=== PATIENT | male | born 1935 | race Caucasian/White ===

== ENCOUNTER 2022-09-28 12:23 | Emergency (ER) | payer MEDICARE, OTHER ==
[2022-09-28] MEDS: Sodium Chloride 0.9% 10 ML Syringe FLUSH PRN ×4 (12:52→14:52)
[2022-09-28 13:04] LABS: BASE EXCESS VENOUS,POC -3 mmol/L (-2 - 3+); PCO2 VENOUS,POC 54 mmHg (41-51); PH VENOUS,POC 7.26 pH Units (7.32-7.43)
[2022-09-28 13:12] LABS: ESTIMATED GFR 36 mL/min (>60)
[2022-09-28] MEDS ORDERED: Azithromycin 500 MG in Sodium Chloride 0.9% 250 ML IV STA (14:03)
[2022-09-28] MEDS ORDERED: cefTRIAXone 2 GM Vial IVPUSH STA (14:03)
[2022-09-28] MEDS ORDERED: Albuterol/Ipratropium 3.0-0.5 MG/3 ML Neb Soln NEB STA (14:31)
[2022-09-28] MEDS ORDERED: Furosemide 20 MG/2 ML VIAL IVPUSH SCH (14:45)
[2022-09-28] MEDS ORDERED: Aspirin 81 MG Tab.Chew PO STA (15:23)
== END 2022-09-28 16:25 ==
LOC: EDBD 12:23 → FB.ED 12:23 → MERGE 12:23 → FB.ED 16:25
DX: J18.9 Pneumonia, unspecified organism (principal); I11.0 Hypertensive heart disease with heart failure; I50.1 Left ventricular failure, unspecified; D64.9 Anemia, unspecified; E78.5 Hyperlipidemia, unspecified; N40.0 Benign prostatic hyperplasia without lower urinary tract symptoms; I44.7 Left bundle-branch block, unspecified; Z87.891 Personal history of nicotine dependence; Z88.5 Allergy status to narcotic agent; Z20.822 Contact with and (suspected) exposure to COVID-19
CPT/HCPCS: 36415; 71045; 80053; 83605; 83880; 84484; 85025; 85379; 85610; 85730; 86140; 87040; 93005; 94640; 96365; 96375; 99285-25; A9270-GY; J0456; J0696; J1940; J3490; J7050; J7620; U0002

== ENCOUNTER 2022-10-05 10:21 | Inpatient (IN) | payer MEDICARE, OTHER ==
[2022-10-05] MEDS: Carvedilol 25 MG Tab PO SCH (18:29)
[2022-10-05] MEDS: Triamcinolone Acetonide 0.1% Crm 15 GM Tube TOP SCH (20:10)
[2022-10-05] MEDS: Chondroitin/Glucosamine Cap PO SCH (20:10)
[2022-10-05] MEDS: atorvaSTATin 40 MG Tab PO SCH (20:10)
[2022-10-06 06:37] LABS: ESTIMATED GFR 59 mL/min (>60)
[2022-10-06] MEDS: Tamsulosin 0.4 MG Cap.ER PO SCH (08:52)
[2022-10-06] MEDS: Fish Oil/Omega-3 Fatty Acids 1 Gm Cap PO SCH (08:52)
[2022-10-06] MEDS: Loratadine 10 MG Tab PO SCH (08:52)
[2022-10-06] MEDS: Chondroitin/Glucosamine Cap PO SCH ×2 (08:52→20:01)
[2022-10-06] MEDS: Carvedilol 25 MG Tab PO SCH ×2 (08:52→17:04)
[2022-10-06] MEDS: Aspirin 81 MG Tab.EC PO SCH (08:53)
[2022-10-06] MEDS: Furosemide 40 MG Tab PO SCH (08:53)
[2022-10-06] MEDS: amLODIPine 10 MG Tab PO SCH (08:53)
[2022-10-06] MEDS: Triamcinolone Acetonide 0.1% Crm 15 GM Tube TOP SCH ×2 (08:54→20:01)
[2022-10-06] MEDS: Calcium Acetate 667 MG Cap PO SCH (08:54)
[2022-10-06] MEDS: Gabapentin 400 MG Cap PO SCH (08:56)
[2022-10-06] MEDS: Acetaminophen 325 MG Tab PO PRN (17:04)
[2022-10-06] MEDS: atorvaSTATin 40 MG Tab PO SCH (20:01)
[2022-10-07] MEDS: Acetaminophen 325 MG Tab PO PRN ×3 (05:36→20:37)
[2022-10-07] MEDS: Chondroitin/Glucosamine Cap PO SCH ×2 (08:34→20:31)
[2022-10-07] MEDS: Loratadine 10 MG Tab PO SCH (08:34)
[2022-10-07] MEDS: Gabapentin 400 MG Cap PO SCH (08:34)
[2022-10-07] MEDS: Tamsulosin 0.4 MG Cap.ER PO SCH (08:34)
[2022-10-07] MEDS: Calcium Acetate 667 MG Cap PO SCH (08:34)
[2022-10-07] MEDS: Aspirin 81 MG Tab.EC PO SCH (08:34)
[2022-10-07] MEDS: Fish Oil/Omega-3 Fatty Acids 1 Gm Cap PO SCH (08:35)
[2022-10-07] MEDS: amLODIPine 10 MG Tab PO SCH (08:35)
[2022-10-07] MEDS: Triamcinolone Acetonide 0.1% Crm 15 GM Tube TOP SCH ×2 (08:35→20:31)
[2022-10-07] MEDS: Carvedilol 25 MG Tab PO SCH ×2 (08:35→17:25)
[2022-10-07] MEDS: Furosemide 40 MG Tab PO SCH (08:35)
[2022-10-07] MEDS: atorvaSTATin 40 MG Tab PO SCH (20:31)
[2022-10-08] MEDS: Carvedilol 25 MG Tab PO SCH ×2 (08:26→17:20)
[2022-10-08] MEDS: Tamsulosin 0.4 MG Cap.ER PO SCH (08:27)
[2022-10-08] MEDS: Loratadine 10 MG Tab PO SCH (08:27)
[2022-10-08] MEDS: Fish Oil/Omega-3 Fatty Acids 1 Gm Cap PO SCH (08:27)
[2022-10-08] MEDS: Furosemide 40 MG Tab PO SCH (08:28)
[2022-10-08] MEDS: Aspirin 81 MG Tab.EC PO SCH (08:28)
[2022-10-08] MEDS: amLODIPine 10 MG Tab PO SCH (08:28)
[2022-10-08] MEDS: Chondroitin/Glucosamine Cap PO SCH ×2 (08:28→20:26)
[2022-10-08] MEDS: Triamcinolone Acetonide 0.1% Crm 15 GM Tube TOP SCH ×2 (08:29→20:32)
[2022-10-08] MEDS: Calcium Acetate 667 MG Cap PO SCH (08:29)
[2022-10-08] MEDS: Gabapentin 400 MG Cap PO SCH (08:33)
[2022-10-08] MEDS ORDERED: Acetaminophen 325 MG Tab PO PRN (10:00)
[2022-10-08] MEDS: Acetaminophen 325 MG Tab PO SCH ×3 (12:18→20:33)
[2022-10-08] MEDS: atorvaSTATin 40 MG Tab PO SCH (20:27)
[2022-10-09] MEDS: Carvedilol 25 MG Tab PO SCH ×2 (09:14→18:59)
[2022-10-09] MEDS: Tamsulosin 0.4 MG Cap.ER PO SCH (09:15)
[2022-10-09] MEDS: Loratadine 10 MG Tab PO SCH (09:15)
[2022-10-09] MEDS: Chondroitin/Glucosamine Cap PO SCH ×2 (09:15→20:00)
[2022-10-09] MEDS: Fish Oil/Omega-3 Fatty Acids 1 Gm Cap PO SCH (09:16)
[2022-10-09] MEDS: Furosemide 40 MG Tab PO SCH (09:16)
[2022-10-09] MEDS: Aspirin 81 MG Tab.EC PO SCH (09:16)
[2022-10-09] MEDS: Calcium Acetate 667 MG Cap PO SCH (09:17)
[2022-10-09] MEDS: amLODIPine 10 MG Tab PO SCH (09:17)
[2022-10-09] MEDS: Triamcinolone Acetonide 0.1% Crm 15 GM Tube TOP SCH ×2 (09:17→20:00)
[2022-10-09] MEDS: Acetaminophen 325 MG Tab PO SCH ×3 (09:18→20:00)
[2022-10-09] MEDS: Gabapentin 400 MG Cap PO SCH (09:41)
[2022-10-09] MEDS ORDERED: Colchicine 0.6 MG Tab PO ONE ×2 (11:00→12:00)
[2022-10-09 11:50] LABS: ESTIMATED GFR 73 mL/min (>60)
[2022-10-09] MEDS: atorvaSTATin 40 MG Tab PO SCH (20:00)
[2022-10-10] MEDS: Tamsulosin 0.4 MG Cap.ER PO SCH (08:50)
[2022-10-10] MEDS: Gabapentin 400 MG Cap PO SCH (08:50)
[2022-10-10] MEDS: Colchicine 0.6 MG Tab PO SCH (08:51)
[2022-10-10] MEDS: Furosemide 40 MG Tab PO SCH (08:51)
[2022-10-10] MEDS: Chondroitin/Glucosamine Cap PO SCH ×2 (08:51→20:34)
[2022-10-10] MEDS: Loratadine 10 MG Tab PO SCH (08:51)
[2022-10-10] MEDS: Aspirin 81 MG Tab.EC PO SCH (08:52)
[2022-10-10] MEDS: Carvedilol 25 MG Tab PO SCH ×2 (08:52→17:39)
[2022-10-10] MEDS: amLODIPine 10 MG Tab PO SCH (08:52)
[2022-10-10] MEDS: Fish Oil/Omega-3 Fatty Acids 1 Gm Cap PO SCH (08:52)
[2022-10-10] MEDS: Acetaminophen 325 MG Tab PO SCH ×3 (08:53→20:35)
[2022-10-10] MEDS: Triamcinolone Acetonide 0.1% Crm 15 GM Tube TOP SCH ×2 (08:53→20:35)
[2022-10-10] MEDS: Calcium Acetate 667 MG Cap PO SCH (08:53)
[2022-10-10] MEDS: Amoxicillin/Clavulanate K 875-125 MG Tab PO SCH ×2 (14:00→20:36)
[2022-10-10] MEDS: atorvaSTATin 40 MG Tab PO SCH (20:35)
[2022-10-11] MEDS: Triamcinolone Acetonide 0.1% Crm 15 GM Tube TOP SCH ×2 (08:38→20:15)
[2022-10-11] MEDS: Chondroitin/Glucosamine Cap PO SCH ×2 (08:39→20:15)
[2022-10-11] MEDS: Acetaminophen 325 MG Tab PO SCH ×3 (08:39→20:16)
[2022-10-11] MEDS: Furosemide 40 MG Tab PO SCH (08:39)
[2022-10-11] MEDS: Aspirin 81 MG Tab.EC PO SCH (08:39)
[2022-10-11] MEDS: Tamsulosin 0.4 MG Cap.ER PO SCH (08:39)
[2022-10-11] MEDS: Fish Oil/Omega-3 Fatty Acids 1 Gm Cap PO SCH (08:39)
[2022-10-11] MEDS: Calcium Acetate 667 MG Cap PO SCH (08:40)
[2022-10-11] MEDS: Loratadine 10 MG Tab PO SCH (08:40)
[2022-10-11] MEDS: Amoxicillin/Clavulanate K 875-125 MG Tab PO SCH ×2 (08:40→20:15)
[2022-10-11] MEDS: Colchicine 0.6 MG Tab PO SCH (08:40)
[2022-10-11] MEDS: Carvedilol 25 MG Tab PO SCH ×2 (08:58→18:23)
[2022-10-11] MEDS: amLODIPine 10 MG Tab PO SCH (08:59)
[2022-10-11] MEDS: Gabapentin 400 MG Cap PO SCH (09:01)
[2022-10-11] MEDS: atorvaSTATin 40 MG Tab PO SCH (20:16)
[2022-10-12] MEDS: Gabapentin 400 MG Cap PO SCH (08:44)
[2022-10-12] MEDS: Furosemide 40 MG Tab PO SCH (08:44)
[2022-10-12] MEDS: Carvedilol 25 MG Tab PO SCH ×2 (08:44→17:47)
[2022-10-12] MEDS: Loratadine 10 MG Tab PO SCH (08:45)
[2022-10-12] MEDS: Amoxicillin/Clavulanate K 875-125 MG Tab PO SCH ×2 (08:45→20:26)
[2022-10-12] MEDS: Chondroitin/Glucosamine Cap PO SCH ×2 (08:45→20:26)
[2022-10-12] MEDS: Colchicine 0.6 MG Tab PO SCH (08:45)
[2022-10-12] MEDS: Aspirin 81 MG Tab.EC PO SCH (08:46)
[2022-10-12] MEDS: amLODIPine 10 MG Tab PO SCH (08:46)
[2022-10-12] MEDS: Tamsulosin 0.4 MG Cap.ER PO SCH (08:46)
[2022-10-12] MEDS: Fish Oil/Omega-3 Fatty Acids 1 Gm Cap PO SCH (08:46)
[2022-10-12] MEDS: Acetaminophen 325 MG Tab PO SCH ×3 (08:47→20:27)
[2022-10-12] MEDS: Triamcinolone Acetonide 0.1% Crm 15 GM Tube TOP SCH ×2 (08:48→20:27)
[2022-10-12] MEDS: Calcium Acetate 667 MG Cap PO SCH (08:49)
[2022-10-12] MEDS: atorvaSTATin 40 MG Tab PO SCH (20:26)
[2022-10-13 06:33] LABS: ESTIMATED GFR 83 mL/min (>60)
[2022-10-13] MEDS: Aspirin 81 MG Tab.EC PO SCH (09:13)
[2022-10-13] MEDS: Gabapentin 400 MG Cap PO SCH (09:13)
[2022-10-13] MEDS: Carvedilol 25 MG Tab PO SCH ×2 (09:13→18:14)
[2022-10-13] MEDS: Calcium Acetate 667 MG Cap PO SCH (09:14)
[2022-10-13] MEDS: amLODIPine 10 MG Tab PO SCH (09:14)
[2022-10-13] MEDS: Amoxicillin/Clavulanate K 875-125 MG Tab PO SCH ×2 (09:14→21:01)
[2022-10-13] MEDS: Triamcinolone Acetonide 0.1% Crm 15 GM Tube TOP SCH ×2 (09:15→21:01)
[2022-10-13] MEDS: Furosemide 40 MG Tab PO SCH (09:24)
[2022-10-13] MEDS: Loratadine 10 MG Tab PO SCH (09:24)
[2022-10-13] MEDS: Fish Oil/Omega-3 Fatty Acids 1 Gm Cap PO SCH (09:24)
[2022-10-13] MEDS: Tamsulosin 0.4 MG Cap.ER PO SCH (09:25)
[2022-10-13] MEDS: Chondroitin/Glucosamine Cap PO SCH ×2 (09:26→21:01)
[2022-10-13] MEDS: Acetaminophen 325 MG Tab PO SCH ×3 (09:27→21:01)
[2022-10-13] MEDS: atorvaSTATin 40 MG Tab PO SCH (21:01)
[2022-10-14] MEDS: Amoxicillin/Clavulanate K 875-125 MG Tab PO SCH ×2 (09:59→20:27)
[2022-10-14] MEDS: Carvedilol 25 MG Tab PO SCH ×2 (09:59→17:41)
[2022-10-14] MEDS: Tamsulosin 0.4 MG Cap.ER PO SCH (10:00)
[2022-10-14] MEDS: Loratadine 10 MG Tab PO SCH (10:00)
[2022-10-14] MEDS: Fish Oil/Omega-3 Fatty Acids 1 Gm Cap PO SCH (10:00)
[2022-10-14] MEDS: Chondroitin/Glucosamine Cap PO SCH ×2 (10:01→20:27)
[2022-10-14] MEDS: Aspirin 81 MG Tab.EC PO SCH (10:01)
[2022-10-14] MEDS: Furosemide 40 MG Tab PO SCH (10:01)
[2022-10-14] MEDS: amLODIPine 10 MG Tab PO SCH (10:02)
[2022-10-14] MEDS: Calcium Acetate 667 MG Cap PO SCH (10:03)
[2022-10-14] MEDS: Triamcinolone Acetonide 0.1% Crm 15 GM Tube TOP SCH ×2 (10:03→20:27)
[2022-10-14] MEDS: Acetaminophen 325 MG Tab PO SCH ×3 (10:04→20:27)
[2022-10-14] MEDS: Gabapentin 400 MG Cap PO SCH (10:10)
[2022-10-14] MEDS: Indomethacin 25 MG Cap PO SCH ×2 (11:49→17:41)
[2022-10-14] MEDS: atorvaSTATin 40 MG Tab PO SCH (20:27)
[2022-10-15] MEDS: Tamsulosin 0.4 MG Cap.ER PO SCH (08:47)
[2022-10-15] MEDS: Calcium Acetate 667 MG Cap PO SCH (08:47)
[2022-10-15] MEDS: Chondroitin/Glucosamine Cap PO SCH ×2 (08:47→21:20)
[2022-10-15] MEDS: Gabapentin 400 MG Cap PO SCH (08:47)
[2022-10-15] MEDS: Furosemide 40 MG Tab PO SCH (08:48)
[2022-10-15] MEDS: Triamcinolone Acetonide 0.1% Crm 15 GM Tube TOP SCH ×2 (08:49→21:21)
[2022-10-15] MEDS: Fish Oil/Omega-3 Fatty Acids 1 Gm Cap PO SCH (08:49)
[2022-10-15] MEDS: Aspirin 81 MG Tab.EC PO SCH (08:49)
[2022-10-15] MEDS: Loratadine 10 MG Tab PO SCH (08:49)
[2022-10-15] MEDS: Acetaminophen 325 MG Tab PO SCH ×3 (08:50→21:21)
[2022-10-15] MEDS: Carvedilol 25 MG Tab PO SCH ×2 (08:57→17:30)
[2022-10-15] MEDS: Indomethacin 25 MG Cap PO SCH ×3 (08:57→17:31)
[2022-10-15] MEDS: amLODIPine 10 MG Tab PO SCH (08:57)
[2022-10-15] MEDS: atorvaSTATin 40 MG Tab PO SCH (21:20)
[2022-10-16] MEDS: Carvedilol 25 MG Tab PO SCH (08:39)
[2022-10-16] MEDS: Indomethacin 25 MG Cap PO SCH (08:39)
[2022-10-16] MEDS: Loratadine 10 MG Tab PO SCH (08:40)
[2022-10-16] MEDS: Gabapentin 400 MG Cap PO SCH (08:40)
[2022-10-16] MEDS: Furosemide 40 MG Tab PO SCH (08:40)
[2022-10-16] MEDS: Chondroitin/Glucosamine Cap PO SCH (08:40)
[2022-10-16] MEDS: Tamsulosin 0.4 MG Cap.ER PO SCH (08:40)
[2022-10-16] MEDS: Aspirin 81 MG Tab.EC PO SCH (08:40)
[2022-10-16] MEDS: amLODIPine 10 MG Tab PO SCH (08:41)
[2022-10-16] MEDS: Triamcinolone Acetonide 0.1% Crm 15 GM Tube TOP SCH (08:41)
[2022-10-16] MEDS: Calcium Acetate 667 MG Cap PO SCH (08:41)
[2022-10-16 08:43] VITALS: BP 142/71; PULSE 87
[2022-10-16] MEDS: Acetaminophen 325 MG Tab PO SCH (08:44)
[2022-10-16] MEDS: Fish Oil/Omega-3 Fatty Acids 1 Gm Cap PO SCH (08:44)
== END 2022-10-16 11:00 | disposition home health service (06) | DRG 947 ==
LOC: FB.MS 14:20
PROVIDERS: ADMIT Student in an Organized Health Care Education/Training Program; ATTEND Family Medicine
DX: R53.81 Other malaise (principal); I21.4 Non-ST elevation (NSTEMI) myocardial infarction; N17.9 Acute kidney failure, unspecified; J96.12 Chronic respiratory failure with hypercapnia; I50.32 Chronic diastolic (congestive) heart failure; I13.0 Hypertensive heart and chronic kidney disease with heart failure and stage 1 through stage 4 chronic kidney disease, or unspecified chronic kidney disease; M10.9 Gout, unspecified; R31.9 Hematuria, unspecified; H91.90 Unspecified hearing loss, unspecified ear; E78.00 Pure hypercholesterolemia, unspecified; K21.9 Gastro-esophageal reflux disease without esophagitis; E78.5 Hyperlipidemia, unspecified; I27.20 Pulmonary hypertension, unspecified; M19.90 Unspecified osteoarthritis, unspecified site; N18.31 Chronic kidney disease, stage 3a; Z88.5 Allergy status to narcotic agent; Z79.82 Long term (current) use of aspirin; Z79.899 Other long term (current) drug therapy; Z87.891 Personal history of nicotine dependence
CPT/HCPCS: 36415; 71046; 80048; 80053; 81001; 84550; 85025; 87086; 93005; 93010; 94150; 97110-GP; 97161-GP; 97165-GO; 97530-GO; 97530-GP; 97535-GO; 99305; 99308; 99309; 99315; A9270-GY

== ENCOUNTER 2024-02-26 09:32 | Inpatient (IN) | payer MEDICARE, OTHER ==
[2024-02-26] MEDS: Fish Oil/Omega-3 Fatty Acids 1 Gm Cap PO SCH (20:07)
[2024-02-26] MEDS: Gemfibrozil 600 MG Tab PO SCH (20:07)
[2024-02-26] MEDS: Gabapentin 400 MG Cap PO SCH (20:09)
[2024-02-26] MEDS: Carvedilol 25 MG Tab PO SCH (20:11)
[2024-02-27] MEDS: Famotidine 10 MG Tab PO SCH (08:31)
[2024-02-27] MEDS: Chondroitin/Glucosamine Cap PO SCH (08:31)
[2024-02-27] MEDS: Febuxostat 40 MG Tab PO SCH (08:32)
[2024-02-27] MEDS: Calcium Acetate 667 MG Cap PO SCH (08:32)
[2024-02-27] MEDS: Loratadine 10 MG Tab PO SCH (08:35)
[2024-02-27] MEDS ORDERED: amLODIPine 10 MG Tab PO SCH (09:00)
[2024-02-27 09:24] LABS: HEMATOCRIT 23.8 % (38.3-50.1); HEMOGLOBIN 7.5 g/dL (12.9-17.7); MEAN CORPUSCULAR HEMOGLOBIN 27.4 pg (27.0-33.3); MEAN CORPUSCULAR HGB CONC 31.3 g/dL (28.7-35.3); MEAN CORPUSCULAR VOLUME 87.5 fL (80.8-98.7); MEAN PLATELET VOLUME 9.1 fL (6.7-11.0); PLATELET COUNT,PLT 471 x10(3)uL (117-477); RED BLOOD CELL COUNT 2.72 x10(6)uL (3.90-5.90); RED CELL DISTRIBUTION WIDTH 16.9 % (12.4-15.0); WHITE BLOOD CELL COUNT,WBC 19.4 x10-3/uL (3.2-10.1)
[2024-02-27 09:32] LABS: BLOOD UREA NITROGEN,BUN 49 mg/dL (7-18); BUN/CREATININE RATIO 30.6 (9-20); CALCIUM 8.7 mg/dL (8.6-10.2); CARBON DIOXIDE,CO2 23 mmol/L (21-32); CHLORIDE,CL 111 mmol/L (100-110); CREATININE 1.6 mg/dL (0.70-1.30); EST CRCL DRUG DOSING (CG) 32.53 mL/min; ESTIMATED GFR 41 mL/min (>60); GLUCOSE RANDOM 152 mg/dL (80-116); POTASSIUM,K 3.7 mmol/L (3.5-5.3); SODIUM,NA 146 mmol/L (135-145)
[2024-02-27 09:42] LABS: ANISOCYTOSIS FEW; BAND PERCENT MAN 1 % (0-6); LYMPHOCYTES PERCENT MAN 4 % (13-37); MONOCYTES PERCENT MAN 2 % (4-12); SEG NEUTROPHILS PERCENT MAN 93 % (46-82)
[2024-02-27] MEDS: Acetaminophen 325 MG Tab PO PRN (09:47)
[2024-02-27] MEDS ORDERED: Sodium Chloride 0.9% 1,000 ML IV SCH (10:45)
[2024-02-27] MEDS ORDERED: Cefepime 1 GM Vial IVPUSH SCH (10:45)
[2024-02-27 11:10] LABS: LACTIC ACID 1.2 mmol/L (0.4-2.0)
[2024-02-27] MEDS ORDERED: VANCOmycin 2 GM/400 ML 2 GM in Premix Bag 1 BAG IV ONE (11:30)
[2024-02-28] MEDS ORDERED: VANCOmycin 1 GM/200 ML 1 GM in Premix Bag 1 BAG IV SCH (11:30)
== END 2024-02-27 11:00 | disposition home or self-care (01) | DRG 195 ==
LOC: FB.MS 16:05
PROVIDERS: ADMIT Family Medicine; ATTEND Family Medicine
DX: J18.9 Pneumonia, unspecified organism (principal); E78.5 Hyperlipidemia, unspecified; I12.9 Hypertensive chronic kidney disease with stage 1 through stage 4 chronic kidney disease, or unspecified chronic kidney disease; D63.1 Anemia in chronic kidney disease; N40.0 Benign prostatic hyperplasia without lower urinary tract symptoms; E78.00 Pure hypercholesterolemia, unspecified; K21.9 Gastro-esophageal reflux disease without esophagitis; K62.89 Other specified diseases of anus and rectum; I27.20 Pulmonary hypertension, unspecified; N18.30 Chronic kidney disease, stage 3 unspecified; R29.818 Other symptoms and signs involving the nervous system; Z88.5 Allergy status to narcotic agent
CPT/HCPCS: 36415; 71045; 80048; 83605; 85025; 86140; 87040; 97763-GO; 99305; A9270-GY

== ENCOUNTER 2024-02-27 11:00 | Inpatient (IN) | payer MEDICARE, OTHER ==
[2024-02-27] MEDS: Cefepime 1 GM Vial IVPUSH SCH (11:42)
[2024-02-27] MEDS: Sodium Chloride 0.9% 10 ML Syringe FLUSH PRN (11:42)
[2024-02-27] MEDS: VANCOmycin 2 GM/400 ML 2 GM in Premix Bag 1 BAG IV ONE (11:43)
[2024-02-27] MEDS: Enoxaparin 40 MG/0.4 ML Syringe SUBCUT SCH (12:54)
[2024-02-27] MEDS: Sodium Chloride 0.9% 1,000 ML IV SCH (13:02)
[2024-02-27 16:15] LABS: APPEARANCE,URINE SLIGHTLY CLOUDY (CLEAR); BACTERIA,URINE MODERATE (NS); BILIRUBIN,URINE SMALL (NEGATIVE); COARSE GRANULAR CASTS,URINE OCCASIONAL (NS); COLOR,URINE YELLOW (YELLOW); FINE GRANULAR CASTS,URINE OCCASIONAL (NS); GLUCOSE,URINE NORMAL (NORMAL); KETONES,URINE NEGATIVE (NEGATIVE); LEUKOCYTE ESTERASE,URINE NEGATIVE (NEGATIVE); MUCUS,URINE FEW (NS); NITRITE,URINE NEGATIVE (NEGATIVE); OCCULT BLOOD,URINE NEGATIVE (NEGATIVE); PROTEIN,URINE NEGATIVE (NEGATIVE); RBC,URINE 0-5 (0-5); SQUAMOUS EPITHELIAL CELLS,UR FEW (NS,R,O); UROBILINOGEN,URINE 4 mg/dL (NEGATIVE); WBC,URINE 0-5 (0-5)
[2024-02-27] MEDS: Acetaminophen 325 MG Tab PO PRN (17:52)
[2024-02-27] MEDS: Gabapentin 400 MG Cap PO SCH (21:22)
[2024-02-27] MEDS: Gemfibrozil 600 MG Tab PO SCH (21:23)
[2024-02-27] MEDS: Fish Oil/Omega-3 Fatty Acids 1 Gm Cap PO SCH (21:24)
[2024-02-28 06:59] LABS: HEMATOCRIT 24.4 % (38.3-50.1); HEMOGLOBIN 7.5 g/dL (12.9-17.7); MEAN CORPUSCULAR HEMOGLOBIN 27.6 pg (27.0-33.3); MEAN CORPUSCULAR HGB CONC 30.7 g/dL (28.7-35.3); MEAN CORPUSCULAR VOLUME 89.8 fL (80.8-98.7); PLATELET COUNT,PLT 518 x10(3)uL (117-477); RED BLOOD CELL COUNT 2.72 x10(6)uL (3.90-5.90)
[2024-02-28 07:05] LABS: BLOOD UREA NITROGEN,BUN 55 mg/dL (7-18); BUN/CREATININE RATIO 34.4 (9-20); CALCIUM 8.4 mg/dL (8.6-10.2); CARBON DIOXIDE,CO2 23 mmol/L (21-32); CHLORIDE,CL 114 mmol/L (100-110); CREATININE 1.6 mg/dL (0.70-1.30); EST CRCL DRUG DOSING (CG) 33.59 mL/min; ESTIMATED GFR 41 mL/min (>60); GLUCOSE RANDOM 125 mg/dL (80-116); POTASSIUM,K 3.9 mmol/L (3.5-5.3); SODIUM,NA 148 mmol/L (135-145)
[2024-02-28 07:13] LABS: ANISOCYTOSIS FEW; BAND PERCENT MAN 2 % (0-6); LYMPHOCYTES PERCENT MAN 6 % (13-37); MONOCYTES PERCENT MAN 10 % (4-12); SEG NEUTROPHILS PERCENT MAN 82 % (46-82)
[2024-02-28 09:01] LABS: INFLUENZA A NAA NEGATIVE (NEGATIVE); INFLUENZA B NAA NEGATIVE (NEGATIVE); RESPIRATORY SYNCYTIAL VIR NAA NEGATIVE (NEGATIVE)
[2024-02-28 09:03] LABS: CORONAVIRUS COVID-19 NAA NEGATIVE (NEGATIVE)
[2024-02-28] MEDS: Calcium Acetate 667 MG Cap PO SCH (09:25)
[2024-02-28] MEDS: Febuxostat 40 MG Tab PO SCH (09:25)
[2024-02-28] MEDS: Loratadine 10 MG Tab PO SCH (09:26)
[2024-02-28] MEDS: Chondroitin/Glucosamine Cap PO SCH (09:26)
[2024-02-28] MEDS: Famotidine 10 MG Tab PO SCH (09:32)
[2024-02-28] MEDS: Lactated Ringers 1,000 ML IV SCH (10:54)
[2024-02-28] MEDS: metroNIDAZOLE/Normal Saline 500 MG in Premix Bag 1 BAG IV SCH (10:59)
[2024-02-28] MEDS: VANCOmycin 1 GM/200 ML 1 GM in Premix Bag 1 BAG IV SCH (12:36)
[2024-02-28] MEDS: Iopamidol 755 Mg/ML 100 ML Bottle IV SCH (15:44)
[2024-02-28 15:52] LABS: LACTIC ACID 0.8 mmol/L (0.4-2.0)
[2024-02-29 06:44] LABS: HEMATOCRIT 24.4 % (38.3-50.1); HEMOGLOBIN 7.6 g/dL (12.9-17.7); MEAN CORPUSCULAR HEMOGLOBIN 27.5 pg (27.0-33.3); MEAN CORPUSCULAR VOLUME 88.7 fL (80.8-98.7); MEAN PLATELET VOLUME 8.7 fL (6.7-11.0); PLATELET COUNT,PLT 589 x10(3)uL (117-477); RED BLOOD CELL COUNT 2.75 x10(6)uL (3.90-5.90); RED CELL DISTRIBUTION WIDTH 17.4 % (12.4-15.0); WHITE BLOOD CELL COUNT,WBC 19.6 x10-3/uL (3.2-10.1)
[2024-02-29 06:49] LABS: A/G RATIO 0.3; ALANINE AMINOTRANSFERASE,ALT 16 U/L (12-36); ALKALINE PHOSPHATASE 106 IU/L (56-112); ASPARTATE AMNIOTRANSFERASE,AST 20 IU/L (5-25); BILIRUBIN TOTAL 0.6 mg/dL (0.1-1.3); BLOOD UREA NITROGEN,BUN 41 mg/dL (7-18); CALCIUM 8.7 mg/dL (8.6-10.2); CARBON DIOXIDE,CO2 23 mmol/L (21-32); EST CRCL DRUG DOSING (CG) 53.74 mL/min; ESTIMATED GFR 73 mL/min (>60); GLUCOSE RANDOM 118 mg/dL (80-116); PROTEIN TOTAL,TP 6.2 g/dL (6.0-8.0); SODIUM,NA 152 mmol/L (135-145)
[2024-02-29 06:55] LABS: CHLORIDE,CL 118 mmol/L (100-110)
[2024-02-29 06:56] LABS: ALBUMIN 1.5 g/dL (3.2-4.6)
[2024-02-29 06:57] LABS: BAND PERCENT MAN 1 % (0-6); LYMPHOCYTES PERCENT MAN 5 % (13-37); MONOCYTES PERCENT MAN 7 % (4-12); SEG NEUTROPHILS PERCENT MAN 87 % (46-82)
[2024-02-29] MEDS: Dextrose 5% in Water 1,000 ML IV SCH (12:25)
[2024-02-29] MEDS: Dexamethasone 0.1% Ophth Soln 5 ML Bottle EARLF SCH (12:52)
[2024-02-29] MEDS: Ciprofloxacin 0.3% Ophth Soln 2.5 ML Bottle EARLF SCH (12:52)
[2024-02-29] MEDS: Furosemide 20 MG/2 ML VIAL IVPUSH STA (19:53)
[2024-03-01 06:25] LABS: BASOPHILS ABSOLUTE AUTO 0.1 x10-3/uL (0.0-0.3); BASOPHILS PERCENT AUTO 0.8 % (0.3-3.8); EOSINOPHILS ABSOLUTE AUTO 0.1 x10-3/uL (0.0-0.6); EOSINOPHILS PERCENT AUTO 0.6 % (0.1-6.8); HEMATOCRIT 26.9 % (38.3-50.1); HEMOGLOBIN 8.5 g/dL (12.9-17.7); LYMPHOCYTES ABSOLUTE AUTO 0.9 x10-3/uL (0.5-4.5); LYMPHOCYTES PERCENT AUTO 7.1 % (15.8-45.3); MEAN CORPUSCULAR HEMOGLOBIN 27.7 pg (27.0-33.3); MEAN CORPUSCULAR HGB CONC 31.8 g/dL (28.7-35.3); MEAN CORPUSCULAR VOLUME 86.9 fL (80.8-98.7); MEAN PLATELET VOLUME 7.9 fL (6.7-11.0); MONOCYTES ABSOLUTE AUTO 0.8 x10-3/uL (0.0-1.2); MONOCYTES PERCENT AUTO 6.9 % (5.5-15.2); NEUTROPHILS ABSOLUTE AUTO 10.3 x10-3/uL (1.7-6.9); NEUTROPHILS PERCENT AUTO 84.6 % (40.3-71.8); PLATELET COUNT,PLT 658 x10(3)uL (117-477); RED CELL DISTRIBUTION WIDTH 17.3 % (12.4-15.0); WHITE BLOOD CELL COUNT,WBC 12.2 x10-3/uL (3.2-10.1)
[2024-03-01 06:30] LABS: BLOOD UREA NITROGEN,BUN 23 mg/dL (7-18); BUN/CREATININE RATIO 25.6 (9-20); CALCIUM 8.5 mg/dL (8.6-10.2); CARBON DIOXIDE,CO2 25 mmol/L (21-32); CHLORIDE,CL 115 mmol/L (100-110); CREATININE 0.9 mg/dL (0.70-1.30); EST CRCL DRUG DOSING (CG) 59.71 mL/min; ESTIMATED GFR 83 mL/min (>60); GLUCOSE RANDOM 125 mg/dL (80-116); POTASSIUM,K 3.3 mmol/L (3.5-5.3); SODIUM,NA 150 mmol/L (135-145)
[2024-03-01 06:37] LABS: RED BLOOD CELL COUNT 3.09 x10(6)uL (3.90-5.90)
[2024-03-01] MEDS: amLODIPine 10 MG Tab PO SCH (08:28)
[2024-03-01] MEDS: Carvedilol 25 MG Tab PO SCH (08:29)
[2024-03-01] MEDS: Potassium Chloride 20 MEQ Tab.ER PO STA (08:30)
[2024-03-01] MEDS: Dextrose 5% in Water 1,000 ML IV SCH (09:40)
[2024-03-01] MEDS: Sennosides/Docusate Sodium 50-8.6 MG Tab PO PRN (11:15)
[2024-03-02 06:45] LABS: HEMATOCRIT 27.2 % (38.3-50.1); HEMOGLOBIN 8.7 g/dL (12.9-17.7); MEAN CORPUSCULAR HEMOGLOBIN 27.8 pg (27.0-33.3); MEAN PLATELET VOLUME 7.8 fL (6.7-11.0); PLATELET COUNT,PLT 602 x10(3)uL (117-477); RED BLOOD CELL COUNT 3.13 x10(6)uL (3.90-5.90); RED CELL DISTRIBUTION WIDTH 17.3 % (12.4-15.0); WHITE BLOOD CELL COUNT,WBC 9.9 x10-3/uL (3.2-10.1)
[2024-03-02 06:51] LABS: BLOOD UREA NITROGEN,BUN 17 mg/dL (7-18); BUN/CREATININE RATIO 21.3 (9-20); CALCIUM 8.4 mg/dL (8.6-10.2); CARBON DIOXIDE,CO2 25 mmol/L (21-32); CHLORIDE,CL 114 mmol/L (100-110); CREATININE 0.8 mg/dL (0.70-1.30); EST CRCL DRUG DOSING (CG) 67.17 mL/min; ESTIMATED GFR 86 mL/min (>60); GLUCOSE RANDOM 123 mg/dL (80-116); POTASSIUM,K 3.3 mmol/L (3.5-5.3); SODIUM,NA 149 mmol/L (135-145)
[2024-03-02 07:14] LABS: EOSINOPHILS PERCENT MAN 2 % (0-5); LYMPHOCYTES PERCENT MAN 7 % (13-37); MONOCYTES PERCENT MAN 8 % (4-12); SEG NEUTROPHILS PERCENT MAN 83 % (46-82)
[2024-03-02 07:15] LABS: ANISOCYTOSIS FEW; POLYCHROMASIA OCCASIONAL
[2024-03-02] MEDS: Carvedilol 12.5 MG Tab PO SCH (09:50)
[2024-03-02] MEDS: Potassium Chloride 20 MEQ Tab.ER PO ONE (09:50)
[2024-03-02] MEDS: VANCOmycin 1.5 GM/300 ML 1.5 GM in Premix Bag 1 BAG IV SCH (12:19)
[2024-03-03 07:13] LABS: MAGNESIUM 1.8 mg/dL (1.8-2.5); POTASSIUM,K 3.4 mmol/L (3.5-5.3)
[2024-03-03 07:15] LABS: HEMATOCRIT 25.3 % (38.3-50.1); HEMOGLOBIN 8.1 g/dL (12.9-17.7); MEAN CORPUSCULAR HEMOGLOBIN 27.7 pg (27.0-33.3); MEAN CORPUSCULAR HGB CONC 31.9 g/dL (28.7-35.3); PLATELET COUNT,PLT 534 x10(3)uL (117-477); RED BLOOD CELL COUNT 2.91 x10(6)uL (3.90-5.90); RED CELL DISTRIBUTION WIDTH 17.5 % (12.4-15.0); WHITE BLOOD CELL COUNT,WBC 9.9 x10-3/uL (3.2-10.1)
[2024-03-03 07:39] LABS: BAND PERCENT MAN 1 % (0-6); EOSINOPHILS PERCENT MAN 1 % (0-5); LYMPHOCYTES PERCENT MAN 8 % (13-37); MONOCYTES PERCENT MAN 8 % (4-12); SEG NEUTROPHILS PERCENT MAN 82 % (46-82)
[2024-03-03 07:40] LABS: ANISOCYTOSIS FEW
[2024-03-03 07:43] LABS: POLYCHROMASIA OCCASIONAL
[2024-03-03] MEDS: Potassium Chloride 20 MEQ Tab.ER PO ONE (08:43)
[2024-03-03] MEDS: Ibuprofen 200 MG Tab PO ONE (08:45)
[2024-03-03] MEDS: Carvedilol 25 MG Tab PO SCH (08:46)
[2024-03-04 06:30] LABS: BASOPHILS ABSOLUTE AUTO 0.1 x10-3/uL (0.0-0.3); BASOPHILS PERCENT AUTO 1.2 % (0.3-3.8); EOSINOPHILS ABSOLUTE AUTO 0.1 x10-3/uL (0.0-0.6); EOSINOPHILS PERCENT AUTO 1.3 % (0.1-6.8); HEMATOCRIT 24.5 % (38.3-50.1); HEMOGLOBIN 7.6 g/dL (12.9-17.7); LYMPHOCYTES ABSOLUTE AUTO 0.8 x10-3/uL (0.5-4.5); LYMPHOCYTES PERCENT AUTO 10.2 % (15.8-45.3); MEAN CORPUSCULAR HEMOGLOBIN 27.5 pg (27.0-33.3); MEAN CORPUSCULAR VOLUME 88.6 fL (80.8-98.7); MEAN PLATELET VOLUME 7.6 fL (6.7-11.0); MONOCYTES ABSOLUTE AUTO 0.8 x10-3/uL (0.0-1.2); MONOCYTES PERCENT AUTO 9.3 % (5.5-15.2); NEUTROPHILS ABSOLUTE AUTO 6.4 x10-3/uL (1.7-6.9); PLATELET COUNT,PLT 453 x10(3)uL (117-477); RED BLOOD CELL COUNT 2.77 x10(6)uL (3.90-5.90); RED CELL DISTRIBUTION WIDTH 17.7 % (12.4-15.0); WHITE BLOOD CELL COUNT,WBC 8.2 x10-3/uL (3.2-10.1)
[2024-03-04 06:36] LABS: BLOOD UREA NITROGEN,BUN 16 mg/dL (7-18); CALCIUM 7.8 mg/dL (8.6-10.2); CARBON DIOXIDE,CO2 25 mmol/L (21-32); CHLORIDE,CL 114 mmol/L (100-110); CREATININE 0.8 mg/dL (0.70-1.30); EST CRCL DRUG DOSING (CG) 67.17 mL/min; ESTIMATED GFR 86 mL/min (>60); GLUCOSE RANDOM 113 mg/dL (80-116); MAGNESIUM 1.9 mg/dL (1.8-2.5); POTASSIUM,K 3.9 mmol/L (3.5-5.3); SODIUM,NA 147 mmol/L (135-145)
[2024-03-04] MEDS: Lisinopril 2.5 MG Tab PO SCH (10:32)
== END 2024-03-04 12:15 | DRG 871 ==
LOC: FB.MS 11:00
PROVIDERS: ADMIT Family Medicine; ATTEND Internal Medicine
DX: A41.9 Sepsis, unspecified organism (principal); J18.9 Pneumonia, unspecified organism; J96.01 Acute respiratory failure with hypoxia; E87.0 Hyperosmolality and hypernatremia; I27.20 Pulmonary hypertension, unspecified; H91.90 Unspecified hearing loss, unspecified ear; I12.9 Hypertensive chronic kidney disease with stage 1 through stage 4 chronic kidney disease, or unspecified chronic kidney disease; M19.90 Unspecified osteoarthritis, unspecified site; G62.9 Polyneuropathy, unspecified; N18.30 Chronic kidney disease, stage 3 unspecified; E87.6 Hypokalemia; E78.2 Mixed hyperlipidemia; R29.818 Other symptoms and signs involving the nervous system; K62.89 Other specified diseases of anus and rectum; H66.90 Otitis media, unspecified, unspecified ear; D63.1 Anemia in chronic kidney disease; H21.89 Other specified disorders of iris and ciliary body; Y95 Nosocomial condition; I95.9 Hypotension, unspecified; Z88.5 Allergy status to narcotic agent; Z79.899 Other long term (current) drug therapy; Z87.19 Personal history of other diseases of the digestive system; Z98.84 Bariatric surgery status; Z90.49 Acquired absence of other specified parts of digestive tract; Z97.4 Presence of external hearing-aid
CPT/HCPCS: 0241U; 36415; 74177; 80048; 80053; 80202; 81001; 83605; 83735; 84132; 84295; 85025; 87040; 87070; 87102; 87205; 97110-GP; 97161-GP; 97165-GO; 97530-GP; 99222; 99232; 99233; 99238; A9270-GY; J0692; J1650; J1836; J1940; J3370; J3490; J7030; J7060; J7120; Q9967

== ENCOUNTER 2024-03-11 09:58 | Inpatient (IN) | payer MEDICARE, OTHER ==
[2024-03-11] MEDS ORDERED: Polyethylene Glycol 3350 Powder 17 GM Packet PO PRN (13:46)
[2024-03-11] MEDS ORDERED: Acetaminophen 325 MG Tab PO PRN (13:46)
[2024-03-11] MEDS ORDERED: Melatonin 3 MG Tab PO PRN (13:46)
[2024-03-11] MEDS ORDERED: Ondansetron 4 MG Tab.DIS PO PRN (13:46)
[2024-03-11] MEDS: Cefepime 2 GM Vial IVPUSH SCH (15:30)
[2024-03-11] MEDS: Sodium Chloride 0.9% 10 ML Syringe FLUSH PRN (15:34)
[2024-03-11] MEDS: VANCOmycin 1.75 GM/350 ML 1.75 GM in Premix Bag 1 BAG IV ONE (16:33)
[2024-03-11] MEDS: Sodium Chloride 0.9% 250 ML IV SCH (19:38)
[2024-03-11] MEDS: Carvedilol 25 MG Tab PO SCH (20:39)
[2024-03-11] MEDS: Fish Oil/Omega-3 Fatty Acids 1 Gm Cap PO SCH (20:39)
[2024-03-11] MEDS: Gabapentin 400 MG Cap PO SCH (20:40)
[2024-03-11] MEDS: Gemfibrozil 600 MG Tab PO SCH (20:40)
[2024-03-11] MEDS: Saccharomyces Boulardii (Probiotic) 250 MG Cap PO SCH (20:40)
[2024-03-11] MEDS: Ferrous Sulfate 325 MG Tab PO SCH (20:41)
[2024-03-11] MEDS: Sodium Chloride 0.9% 1,000 ML IV SCH (22:39)
[2024-03-12 06:50] LABS: HEMATOCRIT 24.4 % (38.3-50.1); HEMOGLOBIN 7.4 g/dL (12.9-17.7); MEAN CORPUSCULAR HEMOGLOBIN 26.8 pg (27.0-33.3); MEAN CORPUSCULAR HGB CONC 30.6 g/dL (28.7-35.3); MEAN CORPUSCULAR VOLUME 87.7 fL (80.8-98.7); MEAN PLATELET VOLUME 7.7 fL (6.7-11.0); PLATELET COUNT,PLT 377 x10(3)uL (117-477); RED BLOOD CELL COUNT 2.78 x10(6)uL (3.90-5.90); RED CELL DISTRIBUTION WIDTH 17.5 % (12.4-15.0)
[2024-03-12 07:03] LABS: A/G RATIO 0.4; ALANINE AMINOTRANSFERASE,ALT 9 U/L (12-36); ALKALINE PHOSPHATASE 74 IU/L (56-112); ASPARTATE AMNIOTRANSFERASE,AST 15 IU/L (5-25); BILIRUBIN TOTAL 0.5 mg/dL (0.1-1.3); BLOOD UREA NITROGEN,BUN 37 mg/dL (7-18); BUN/CREATININE RATIO 28.5 (9-20); CALCIUM 8.3 mg/dL (8.6-10.2); CARBON DIOXIDE,CO2 27 mmol/L (21-32); CHLORIDE,CL 113 mmol/L (100-110); CREATININE 1.3 mg/dL (0.70-1.30); EST CRCL DRUG DOSING (CG) 38.73 mL/min; ESTIMATED GFR 53 mL/min (>60); GLUCOSE RANDOM 115 mg/dL (80-116); POTASSIUM,K 5.5 mmol/L (3.5-5.3); PROTEIN TOTAL,TP 5.7 g/dL (6.0-8.0); SODIUM,NA 146 mmol/L (135-145)
[2024-03-12 07:08] LABS: ANISOCYTOSIS FEW; BAND PERCENT MAN 1 % (0-6); LYMPHOCYTES PERCENT MAN 12 % (13-37); MONOCYTES PERCENT MAN 6 % (4-12); SEG NEUTROPHILS PERCENT MAN 81 % (46-82)
[2024-03-12 07:31] LABS: ALBUMIN 1.5 g/dL (3.2-4.6)
[2024-03-12] MEDS: Chondroitin/Glucosamine Cap PO SCH (08:01)
[2024-03-12] MEDS: Loratadine 10 MG Tab PO SCH (08:01)
[2024-03-12] MEDS: Lisinopril 2.5 MG Tab PO SCH (08:02)
[2024-03-12] MEDS: Famotidine 10 MG Tab PO SCH (08:02)
[2024-03-12] MEDS: Calcium Acetate 667 MG Cap PO SCH (08:02)
[2024-03-12] MEDS: Febuxostat 40 MG Tab PO SCH (08:02)
[2024-03-12] MEDS: Dextrose 5%-0.45% NaCl 1,000 ML IV SCH (08:13)
[2024-03-12] MEDS: VANCOmycin 1.25 GM/250 ML 1.25 GM in Premix Bag 1 BAG IV SCH (16:49)
[2024-03-13 07:00] LABS: HEMOGLOBIN 7.8 g/dL (12.9-17.7); MEAN CORPUSCULAR HEMOGLOBIN 27.4 pg (27.0-33.3); MEAN CORPUSCULAR HGB CONC 31.4 g/dL (28.7-35.3); MEAN CORPUSCULAR VOLUME 87.2 fL (80.8-98.7); MEAN PLATELET VOLUME 7.6 fL (6.7-11.0); PLATELET COUNT,PLT 380 x10(3)uL (117-477); RED BLOOD CELL COUNT 2.87 x10(6)uL (3.90-5.90); RED CELL DISTRIBUTION WIDTH 17.2 % (12.4-15.0); WHITE BLOOD CELL COUNT,WBC 4.8 x10-3/uL (3.2-10.1)
[2024-03-13 07:14] LABS: A/G RATIO 0.4; ALKALINE PHOSPHATASE 74 IU/L (56-112); ASPARTATE AMNIOTRANSFERASE,AST 14 IU/L (5-25); BILIRUBIN TOTAL 0.5 mg/dL (0.1-1.3); BLOOD UREA NITROGEN,BUN 31 mg/dL (7-18); BUN/CREATININE RATIO 25.8 (9-20); CALCIUM 8.2 mg/dL (8.6-10.2); CARBON DIOXIDE,CO2 25 mmol/L (21-32); CHLORIDE,CL 113 mmol/L (100-110); CREATININE 1.2 mg/dL (0.70-1.30); EST CRCL DRUG DOSING (CG) 41.96 mL/min; ESTIMATED GFR 59 mL/min (>60); GLUCOSE RANDOM 111 mg/dL (80-116); PROTEIN TOTAL,TP 5.7 g/dL (6.0-8.0); SODIUM,NA 142 mmol/L (135-145); VANCOMYCIN TROUGH 17.9 ug/mL (<0.8)
[2024-03-13 07:21] LABS: ALANINE AMINOTRANSFERASE,ALT 7 U/L (12-36)
[2024-03-13 07:27] LABS: BAND PERCENT MAN 1 % (0-6); EOSINOPHILS PERCENT MAN 2 % (0-5); LYMPHOCYTES PERCENT MAN 14 % (13-37); MONOCYTES PERCENT MAN 5 % (4-12); NRBC MANUAL 1 /100WBC (0-0); SEG NEUTROPHILS PERCENT MAN 78 % (46-82)
[2024-03-13 07:28] LABS: ANISOCYTOSIS FEW
[2024-03-13 07:39] LABS: ALBUMIN 1.6 g/dL (3.2-4.6)
[2024-03-14 07:04] LABS: BASOPHILS ABSOLUTE AUTO 0.1 x10-3/uL (0.0-0.3); BASOPHILS PERCENT AUTO 1.1 % (0.3-3.8); EOSINOPHILS ABSOLUTE AUTO 0.2 x10-3/uL (0.0-0.6); EOSINOPHILS PERCENT AUTO 3.6 % (0.1-6.8); HEMATOCRIT 24.5 % (38.3-50.1); HEMOGLOBIN 7.5 g/dL (12.9-17.7); LYMPHOCYTES ABSOLUTE AUTO 0.8 x10-3/uL (0.5-4.5); LYMPHOCYTES PERCENT AUTO 16.5 % (15.8-45.3); MEAN CORPUSCULAR HEMOGLOBIN 26.6 pg (27.0-33.3); MEAN CORPUSCULAR HGB CONC 30.7 g/dL (28.7-35.3); MEAN CORPUSCULAR VOLUME 86.9 fL (80.8-98.7); MEAN PLATELET VOLUME 7.3 fL (6.7-11.0); MONOCYTES ABSOLUTE AUTO 0.5 x10-3/uL (0.0-1.2); MONOCYTES PERCENT AUTO 10.8 % (5.5-15.2); NEUTROPHILS ABSOLUTE AUTO 3.3 x10-3/uL (1.7-6.9); PLATELET COUNT,PLT 357 x10(3)uL (117-477); RED BLOOD CELL COUNT 2.82 x10(6)uL (3.90-5.90); RED CELL DISTRIBUTION WIDTH 17.9 % (12.4-15.0); WHITE BLOOD CELL COUNT,WBC 4.8 x10-3/uL (3.2-10.1)
[2024-03-14 07:14] LABS: A/G RATIO 0.4; ALKALINE PHOSPHATASE 77 IU/L (56-112); ASPARTATE AMNIOTRANSFERASE,AST 11 IU/L (5-25); BILIRUBIN TOTAL 0.3 mg/dL (0.1-1.3); BLOOD UREA NITROGEN,BUN 25 mg/dL (7-18); CALCIUM 8.1 mg/dL (8.6-10.2); CARBON DIOXIDE,CO2 26 mmol/L (21-32); CHLORIDE,CL 111 mmol/L (100-110); EST CRCL DRUG DOSING (CG) 50.35 mL/min; ESTIMATED GFR 73 mL/min (>60); GLUCOSE RANDOM 116 mg/dL (80-116); POTASSIUM,K 4.9 mmol/L (3.5-5.3); PROTEIN TOTAL,TP 5.5 g/dL (6.0-8.0); SODIUM,NA 143 mmol/L (135-145)
[2024-03-14 07:27] LABS: ALANINE AMINOTRANSFERASE,ALT < 6 U/L (12-36); ALBUMIN 1.5 g/dL (3.2-4.6)
[2024-03-15 07:09] LABS: HEMOGLOBIN 7.5 g/dL (12.9-17.7); WHITE BLOOD CELL COUNT,WBC 4.5 x10-3/uL (3.2-10.1)
[2024-03-15 07:10] LABS: BASOPHILS ABSOLUTE AUTO 0.1 x10-3/uL (0.0-0.3); EOSINOPHILS ABSOLUTE AUTO 0.1 x10-3/uL (0.0-0.6); EOSINOPHILS PERCENT AUTO 3.2 % (0.1-6.8); LYMPHOCYTES PERCENT AUTO 21.5 % (15.8-45.3); MEAN CORPUSCULAR HEMOGLOBIN 27.1 pg (27.0-33.3); MEAN CORPUSCULAR HGB CONC 31.2 g/dL (28.7-35.3); MEAN CORPUSCULAR VOLUME 87.1 fL (80.8-98.7); MEAN PLATELET VOLUME 7.6 fL (6.7-11.0); MONOCYTES ABSOLUTE AUTO 0.6 x10-3/uL (0.0-1.2); MONOCYTES PERCENT AUTO 12.6 % (5.5-15.2); NEUTROPHILS ABSOLUTE AUTO 2.7 x10-3/uL (1.7-6.9); NEUTROPHILS PERCENT AUTO 60.7 % (40.3-71.8); PLATELET COUNT,PLT 325 x10(3)uL (117-477); RED BLOOD CELL COUNT 2.75 x10(6)uL (3.90-5.90); RED CELL DISTRIBUTION WIDTH 17.6 % (12.4-15.0)
[2024-03-15 07:15] LABS: BLOOD UREA NITROGEN,BUN 25 mg/dL (7-18); CALCIUM 8.4 mg/dL (8.6-10.2); CARBON DIOXIDE,CO2 25 mmol/L (21-32); CHLORIDE,CL 113 mmol/L (100-110); EST CRCL DRUG DOSING (CG) 50.35 mL/min; ESTIMATED GFR 73 mL/min (>60); GLUCOSE RANDOM 100 mg/dL (80-116); SODIUM,NA 144 mmol/L (135-145)
[2024-03-15] MEDS: Lisinopril 2.5 MG Tab PO SCH (12:07)
[2024-03-16 06:30] LABS: HEMATOCRIT 26.7 % (38.3-50.1); HEMOGLOBIN 8.5 g/dL (12.9-17.7); MEAN CORPUSCULAR HEMOGLOBIN 27.7 pg (27.0-33.3); MEAN CORPUSCULAR HGB CONC 31.8 g/dL (28.7-35.3); MEAN PLATELET VOLUME 7.6 fL (6.7-11.0); PLATELET COUNT,PLT 341 x10(3)uL (117-477); RED BLOOD CELL COUNT 3.06 x10(6)uL (3.90-5.90); RED CELL DISTRIBUTION WIDTH 17.9 % (12.4-15.0); WHITE BLOOD CELL COUNT,WBC 4.7 x10-3/uL (3.2-10.1)
[2024-03-16 06:41] LABS: BLOOD UREA NITROGEN,BUN 23 mg/dL (7-18); CALCIUM 8.7 mg/dL (8.6-10.2); CARBON DIOXIDE,CO2 26 mmol/L (21-32); CHLORIDE,CL 113 mmol/L (100-110); EST CRCL DRUG DOSING (CG) 50.35 mL/min; ESTIMATED GFR 73 mL/min (>60); GLUCOSE RANDOM 89 mg/dL (80-116); POTASSIUM,K 5.1 mmol/L (3.5-5.3); SODIUM,NA 144 mmol/L (135-145)
[2024-03-16 07:08] LABS: ANISOCYTOSIS FEW; EOSINOPHILS PERCENT MAN 1 % (0-5); LYMPHOCYTES PERCENT MAN 24 % (13-37); MONOCYTES PERCENT MAN 9 % (4-12); SEG NEUTROPHILS PERCENT MAN 66 % (46-82)
[2024-03-16 10:31] LABS: ALKALINE PHOSPHATASE 96 IU/L (56-112); ASPARTATE AMNIOTRANSFERASE,AST 13 IU/L (5-25); BILIRUBIN DIRECT 0.17 mg/dL (0.10-0.20); BILIRUBIN TOTAL 0.4 mg/dL (0.1-1.3); PROTEIN TOTAL,TP 5.8 g/dL (6.0-8.0)
[2024-03-16 10:44] LABS: ALANINE AMINOTRANSFERASE,ALT < 6 U/L (12-36); ALBUMIN 1.6 g/dL (3.2-4.6)
[2024-03-16] MEDS: LORazepam 2 MG/ML SDV IVPUSH PRN (18:03)
[2024-03-16 18:32] LABS: BILIRUBIN,URINE NEGATIVE (NEGATIVE); GLUCOSE,URINE NORMAL (NORMAL); KETONES,URINE NEGATIVE (NEGATIVE); LEUKOCYTE ESTERASE,URINE NEGATIVE (NEGATIVE); NITRITE,URINE NEGATIVE (NEGATIVE); OCCULT BLOOD,URINE LARGE (NEGATIVE); PROTEIN,URINE NEGATIVE (NEGATIVE); UROBILINOGEN,URINE NORMAL (NEGATIVE)
[2024-03-16 18:55] LABS: AMORPHOUS SEDIMENT,URINE FEW; APPEARANCE,URINE CLEAR (CLEAR); BACTERIA,URINE FEW (NS); COLOR,URINE YELLOW (YELLOW); FINE GRANULAR CASTS,URINE OCCASIONAL (NS); RBC,URINE 0-5 (0-5); SQUAMOUS EPITHELIAL CELLS,UR OCCASIONAL (NS,R,O); WBC,URINE 0-5 (0-5)
[2024-03-17 06:47] LABS: HEMATOCRIT 26.1 % (38.3-50.1); HEMOGLOBIN 8.1 g/dL (12.9-17.7); MEAN CORPUSCULAR HEMOGLOBIN 26.7 pg (27.0-33.3); MEAN CORPUSCULAR HGB CONC 30.9 g/dL (28.7-35.3); MEAN CORPUSCULAR VOLUME 86.6 fL (80.8-98.7); MEAN PLATELET VOLUME 7.9 fL (6.7-11.0); PLATELET COUNT,PLT 227 x10(3)uL (117-477); RED BLOOD CELL COUNT 3.02 x10(6)uL (3.90-5.90); RED CELL DISTRIBUTION WIDTH 17.7 % (12.4-15.0); WHITE BLOOD CELL COUNT,WBC 4.1 x10-3/uL (3.2-10.1)
[2024-03-17 06:51] LABS: BLOOD UREA NITROGEN,BUN 22 mg/dL (7-18); BUN/CREATININE RATIO 27.5 (9-20); CALCIUM 8.6 mg/dL (8.6-10.2); CARBON DIOXIDE,CO2 23 mmol/L (21-32); CHLORIDE,CL 113 mmol/L (100-110); CREATININE 0.8 mg/dL (0.70-1.30); EST CRCL DRUG DOSING (CG) 62.94 mL/min; ESTIMATED GFR 86 mL/min (>60); GLUCOSE RANDOM 99 mg/dL (80-116); POTASSIUM,K 4.9 mmol/L (3.5-5.3); SODIUM,NA 145 mmol/L (135-145)
[2024-03-17 07:16] LABS: EOSINOPHILS PERCENT MAN 2 % (0-5); LYMPHOCYTES PERCENT MAN 22 % (13-37); MONOCYTES PERCENT MAN 5 % (4-12); SEG NEUTROPHILS PERCENT MAN 71 % (46-82)
[2024-03-17 07:17] LABS: ANISOCYTOSIS FEW
[2024-03-17 15:11] LABS: BASE EXCESS VENOUS,POC -6 mmol/L (-2 - 3+); PCO2 VENOUS,POC 43 mmHg (41-51); PH VENOUS,POC 7.28 pH Units (7.32-7.43)
[2024-03-17 15:25] LABS: LACTIC ACID 0.6 mmol/L (0.4-2.0)
[2024-03-18] MEDS ORDERED: Haloperidol Lactate 5 MG/ML SDV IM PRN (10:27)
== END 2024-03-18 13:30 | DRG 177 ==
LOC: FB.ED 09:58 → FB.MS 12:45
PROVIDERS: ADMIT Family Medicine; ATTEND Internal Medicine
PROC: 30233N1 Transfusion of Nonautologous Red Blood Cells into Peripheral Vein, Percutaneous Approach (ICD-10-PCS; principal; 2024-03-11)
DX: J15.212 Pneumonia due to Methicillin resistant Staphylococcus aureus (principal); S06.5XAA Traumatic subdural hemorrhage with loss of consciousness status unknown, initial encounter; D62 Acute posthemorrhagic anemia; N17.9 Acute kidney failure, unspecified; K62.6 Ulcer of anus and rectum; E46 Unspecified protein-calorie malnutrition; E87.0 Hyperosmolality and hypernatremia; J90 Pleural effusion, not elsewhere classified; G96.00 Cerebrospinal fluid leak, unspecified; Z66 Do not resuscitate; Z51.5 Encounter for palliative care; K21.9 Gastro-esophageal reflux disease without esophagitis; M19.90 Unspecified osteoarthritis, unspecified site; G62.9 Polyneuropathy, unspecified; N18.9 Chronic kidney disease, unspecified; H91.90 Unspecified hearing loss, unspecified ear; D63.1 Anemia in chronic kidney disease; R39.2 Extrarenal uremia; K57.90 Diverticulosis of intestine, part unspecified, without perforation or abscess without bleeding; I12.9 Hypertensive chronic kidney disease with stage 1 through stage 4 chronic kidney disease, or unspecified chronic kidney disease; R60.0 Localized edema; R53.1 Weakness; E88.09 Other disorders of plasma-protein metabolism, not elsewhere classified; E78.2 Mixed hyperlipidemia; Y95 Nosocomial condition; R45.1 Restlessness and agitation; R62.7 Adult failure to thrive; D64.9 Anemia, unspecified; J18.9 Pneumonia, unspecified organism; Z98.49 Cataract extraction status, unspecified eye; I10 Essential (primary) hypertension; Z98.890 Other specified postprocedural states; E78.00 Pure hypercholesterolemia, unspecified; Z68.31 Body mass index [BMI] 31.0-31.9, adult; Z88.5 Allergy status to narcotic agent; Z88.8 Allergy status to other drugs, medicaments and biological substances; Z79.899 Other long term (current) drug therapy; Z90.49 Acquired absence of other specified parts of digestive tract; Z87.891 Personal history of nicotine dependence
CPT/HCPCS: 36415; 36430; 70450; 70551; 71045; 80048; 80053; 80076; 80202; 81001; 82272; 82607; 83605; 83735; 84443; 84484; 85025; 86850; 86900; 86901; 86920; 86922; 87040; 93005; 93010; 97161-GP; 97165-GO; 99223; 99232; 99238; 99285; A9270-GY; C1758; J0692; J2060; J3370; J3490; J7030; J7042; J7050; P9016